=== PATIENT | male | born 1935 | race Asian ===

== ENCOUNTER 2016-08-28 07:28 | Emergency (ER) | payer OTHER ==
[~2016-08-28] VITALS: Ht 177.8 cm; Wt 77.4 kg
[2016-08-28 07:31] VITALS: BP 0/0
== END 2016-08-28 13:34 | disposition expired ==
LOC: EMS 07:36
DX: I46.9 Cardiac arrest, cause unspecified (principal); E11.9 Type 2 diabetes mellitus without complications
CPT/HCPCS: 92950; 99285